=== PATIENT | male | born 1930 | race Caucasian/White ===

== ENCOUNTER 2017-02-16 23:11 | Inpatient (IN) | payer OTHER ==
[~2017-02-16] VITALS: Ht 177.8 cm; Wt 75.2 kg
[~2017-02-16 23:11] MED LIST: AMMONIUM LACTA140 GM TP; ESCITALOPRAM OX10 MG PO; HALOPERIDOL0.5 MG PO; LEXAPRO10 MG PO; SILVER SULFADIA50 GM TP; TAMSULOSIN HCL0.4 MG PO; VITAMIN D32000 UNI1 PO; XARELTO10 MG PO; XARELTO20 MG PO
[2017-02-16 23:52] LABS: MCHC 33.2 G/DL (30.0-36.0); MCV 96.4 FL (86-99); MEAN PLAT.VOLUME 10.3 uM^3 (9.0-12.4); PLATELET COUNT 157 K/uL (156-360); RBC DIS.WIDTH-SD 46.5 % (39-53); RED BLOOD COUNT 3.84 M/uL (4.00-5.50); WHITE BLOOD COUNT 11.8 K/uL (4.1-10.2)
[2017-02-16 23:59] LABS: CHLORIDE 106 mEq/L (99-109); POTASSIUM 4.3 mEq/L (3.7-5.4); SODIUM 139 mEq/L (136-147)
[2017-02-17 00:01] LABS: GLUCOSE 107 mg/dL (70-99)
[2017-02-17 00:02] LABS: ANION GAP 9 MEQ/L (2-14)
[2017-02-17 00:03] LABS: TOTAL BILIRUBIN 0.8 mg/dL (0.0-1.0)
[2017-02-17 00:04] LABS: ALKALINE PHOSPHATASE 71 IU/L (3-129)
[2017-02-17 00:05] LABS: GFR ESTIMATE (CALCULATED) 47 mL/min/
[2017-02-17 00:06] LABS: UREA NITROGEN (BUN) 26 mg/dL (9-23)
[2017-02-17 00:08] LABS: LIPASE 27 U/L (1.0-51.0)
[2017-02-17 00:14] LABS: TROP-I INTERPRETATION NEGATIVE; TROPONIN-I < 0.01 ng/mL (0.0-0.30)
[2017-02-17] MEDS ORDERED: LEXAPRO5 MG PO (00:54)
[2017-02-17] MEDS ORDERED: DEPAKOTE125 MG PO (00:54)
[2017-02-17] MEDS ORDERED: TYLENOL EXTRA500 MG PO (00:54)
[2017-02-17] MEDS ORDERED: VITAMIN B-12500 MC5 PO (00:55)
[2017-02-17] MEDS ORDERED: MELATONIN3 MG PO (00:55)
[2017-02-17] MEDS ORDERED: HALDOL0.5 MG PO (00:55)
[2017-02-17 01:17] LABS: ADD MIUA? YES; COLOR BROWN ((YELLOW)); LEUKOCYTES MODERATE; SPECIFIC GRAVITY 1.025 (1.000-1.030)
[2017-02-17 01:18] LABS: BILIRUBIN NEGATIVE; BLOOD LARGE; GLUCOSE (STRIP) NEGATIVE; KETONES NEGATIVE; NITRITE POSITIVE; PH, URINE 6.5 (5-8); PROTEIN (STRIP) 100; UROBILINOGEN 0.2 MG/DL (0.2-1.0)
[2017-02-17 01:19] LABS: RED BLOOD CELLS TNTC /HPF (0-5); UCUL ADDED? YES; WHITE BLOOD CELLS TNTC /HPF (0-5)
[2017-02-17 05:15] VITALS: BP 118/64
[2017-02-17 08:50] VITALS: BP 136/67
[2017-02-17 08:58] LABS: HEMATOCRIT 35.7 % (38.0-50.0); MCH 32.8 PG (29.0-34.0); MCHC 33.1 G/DL (30.0-36.0); MCV 99.2 FL (86-99); MEAN PLAT.VOLUME 10.3 uM^3 (9.0-12.4); PLATELET COUNT 134 K/uL (156-360); RBC DIS.WIDTH-CV 13.1 % (11.8-14.6); RBC DIS.WIDTH-SD 47.5 % (39-53); WHITE BLOOD COUNT 9.7 K/uL (4.1-10.2)
[2017-02-17 09:21] LABS: ANION GAP 4 MEQ/L (2-14); CHLORIDE 109 MEQ/L (99-109); GFR ESTIMATE (CALCULATED) 56 mL/min/; GLUCOSE 106 mg/dL (70-99); POTASSIUM 3.9 MEQ/L (3.7-5.4); SAMPLE HEMOLYSIS CHECK 0; SAMPLE ICTERIC CHECK 0; SAMPLE LIPEMIA CHECK 0; SODIUM 139 MEQ/L (136-147); UREA NITROGEN (BUN) 21 mg/dL (9-23)
[2017-02-17 16:09] VITALS: BP 155/63
[2017-02-17 22:57] VITALS: BP 115/58
[2017-02-18 06:35] LABS: EOSINOPHIL (%) 2.3 % (0-5); EOSINOPHIL COUNT 0.2 K/uL (0-0.3); HEMATOCRIT 34.9 % (38.0-50.0); IMMATURE GRANULOCYTE (%) 1.7 % (0.0-0.7); IMMATURE GRANULOCYTE COUNT 0.1 K/uL; INSTRUMENT ABS NEUTROPHIL CT 5.3 K/uL; MCH 31.4 PG (29.0-34.0); MCHC 31.8 G/DL (30.0-36.0); MCV 98.6 FL (86-99); MEAN PLAT.VOLUME 10.9 uM^3 (9.0-12.4); MONOCYTE (%) 11.5 % (3-12); MONOCYTE COUNT 0.9 K/uL (0-0.8); NEUTROPHIL (%) 70.3 % (45-76); NEUTROPHIL COUNT 5.3 K/uL (1.8-6.4); PLATELET COUNT 111 K/uL (156-360); RBC DIS.WIDTH-CV 12.8 % (11.8-14.6); RBC DIS.WIDTH-SD 46.8 % (39-53); RED BLOOD COUNT 3.54 M/uL (4.00-5.50); WHITE BLOOD COUNT 7.5 K/uL (4.1-10.2)
[2017-02-18 07:20] LABS: ANION GAP 9 MEQ/L (2-14); CHLORIDE 109 MEQ/L (99-109); GFR ESTIMATE (CALCULATED) 56 mL/min/; GLUCOSE 70 mg/dL (70-99); POTASSIUM 3.9 MEQ/L (3.7-5.4); SAMPLE HEMOLYSIS CHECK 0; SAMPLE ICTERIC CHECK 0; SAMPLE LIPEMIA CHECK 0; SODIUM 140 MEQ/L (136-147); UREA NITROGEN (BUN) 20 mg/dL (9-23)
[2017-02-18 08:04] VITALS: BP 111/59
[2017-02-18 15:30] VITALS: BP 124/63
[2017-02-18 22:50] VITALS: BP 142/70
[2017-02-19 06:04] LABS: HEMATOCRIT 32.7 % (38.0-50.0); MCH 32.4 PG (29.0-34.0); MCHC 33.6 G/DL (30.0-36.0); MCV 96.2 FL (86-99); PLATELET COUNT 121 K/uL (156-360); RBC DIS.WIDTH-CV 12.8 % (11.8-14.6); WHITE BLOOD COUNT 6.2 K/uL (4.1-10.2)
[2017-02-19 06:18] LABS: ANION GAP 6 MEQ/L (2-14); CHLORIDE 113 MEQ/L (99-109); GFR ESTIMATE (CALCULATED) > 59 mL/min/; GLUCOSE 81 mg/dL (70-99); POTASSIUM 3.8 MEQ/L (3.7-5.4); SAMPLE HEMOLYSIS CHECK 0; SAMPLE ICTERIC CHECK 0; SAMPLE LIPEMIA CHECK 0; SODIUM 144 MEQ/L (136-147); UREA NITROGEN (BUN) 18 mg/dL (9-23)
[2017-02-19 07:29] VITALS: BP 128/63
[2017-02-19 16:21] VITALS: BP 134/68
[2017-02-20 00:07] VITALS: BP 134/59
[2017-02-20 06:47] LABS: HEMATOCRIT 32.9 % (38.0-50.0); MCH 32.4 PG (29.0-34.0); MCHC 33.4 G/DL (30.0-36.0); MCV 97.1 FL (86-99); MEAN PLAT.VOLUME 11.2 uM^3 (9.0-12.4); PLATELET COUNT 136 K/uL (156-360); RBC DIS.WIDTH-CV 12.6 % (11.8-14.6); RBC DIS.WIDTH-SD 44.7 % (39-53); RED BLOOD COUNT 3.39 M/uL (4.00-5.50); WHITE BLOOD COUNT 6.1 K/uL (4.1-10.2)
[2017-02-20 07:10] LABS: ANION GAP 7 MEQ/L (2-14); CHLORIDE 111 MEQ/L (99-109); GFR ESTIMATE (CALCULATED) 56 mL/min/; GLUCOSE 75 mg/dL (70-99); POTASSIUM 3.8 MEQ/L (3.7-5.4); SAMPLE HEMOLYSIS CHECK 0; SAMPLE ICTERIC CHECK 0; SAMPLE LIPEMIA CHECK 0; SODIUM 143 MEQ/L (136-147); UREA NITROGEN (BUN) 15 mg/dL (9-23)
[2017-02-20 07:50] VITALS: BP 90/68
[2017-02-20 11:45] VITALS: BP 98/62
[2017-02-20 16:22] VITALS: BP 120/6
[2017-02-20 23:07] VITALS: BP 135/67
[2017-02-21 07:44] VITALS: BP 132/70
[2017-02-21 15:48] VITALS: BP 154/71
[2017-02-21 23:36] VITALS: BP 141/70
[2017-02-22 07:24] VITALS: BP 126/56
[2017-02-22 15:21] VITALS: BP 143/75
[2017-02-23 01:04] VITALS: BP 131/65
[2017-02-23 06:58] LABS: MCH 31.4 PG (29.0-34.0); MCHC 32.2 G/DL (30.0-36.0); MCV 97.3 FL (86-99); MEAN PLAT.VOLUME 11.7 uM^3 (9.0-12.4); PLATELET COUNT 132 K/uL (156-360); RBC DIS.WIDTH-CV 12.7 % (11.8-14.6); RBC DIS.WIDTH-SD 45.6 % (39-53); WHITE BLOOD COUNT 6.1 K/uL (4.1-10.2)
[2017-02-23 07:27] LABS: ANION GAP 10 MEQ/L (2-14); CHLORIDE 111 MEQ/L (99-109); GFR ESTIMATE (CALCULATED) 51 mL/min/; GLUCOSE 69 mg/dL (70-99); POTASSIUM 3.7 MEQ/L (3.7-5.4); SAMPLE HEMOLYSIS CHECK 0; SAMPLE ICTERIC CHECK 0; SAMPLE LIPEMIA CHECK 0; SODIUM 143 MEQ/L (136-147); UREA NITROGEN (BUN) 8 mg/dL (9-23)
[2017-02-23 07:55] VITALS: BP 128/68
[2017-02-23] MEDS ORDERED: CIPRO500 MG PO (09:33)
[2017-02-23] MEDS ORDERED: HEPARIN SO5000 UNIT4 SC (09:33)
[2017-02-23] MEDS ORDERED: TAMSULOSIN HCL0.4 MG PO (09:33)
[2017-02-23] MEDS ORDERED: VANCOMYCIN HCL1 GM IV (09:33)
== END 2017-02-23 13:38 | DRG 689 ==
LOC: EME → EDBD 23:11 → EME 23:11 → 5EAST 02-17 02:25 → EDOF 02-17 02:25 → ENRESERV 02-17 02:26 → EDOF 02-17 03:34 → 5EAST 02-17 03:34 → ENRESERV 02-17 03:49 → 5EAST 02-17 04:43 → ENPENDDIS 02-23 13:00 → 5EAST 02-23 13:38
PROVIDERS: Emergency Medicine; Hospitalist; Internal Medicine
DX: N39.0 Urinary tract infection, site not specified (principal); G93.41 Metabolic encephalopathy; R78.81 Bacteremia; I82.511 Chronic embolism and thrombosis of right femoral vein; B95.62 Methicillin resistant Staphylococcus aureus infection as the cause of diseases classified elsewhere; B96.5 Pseudomonas (aeruginosa) (mallei) (pseudomallei) as the cause of diseases classified elsewhere; G30.1 Alzheimer's disease with late onset; F02.80 Dementia in other diseases classified elsewhere, unspecified severity, without behavioral disturbance, psychotic disturbance, mood disturbance, and anxiety; N18.9 Chronic kidney disease, unspecified; G40.909 Epilepsy, unspecified, not intractable, without status epilepticus; I08.0 Rheumatic disorders of both mitral and aortic valves; F32.9 Major depressive disorder, single episode, unspecified; N40.0 Benign prostatic hyperplasia without lower urinary tract symptoms; Z86.711 Personal history of pulmonary embolism; Z66 Do not resuscitate
CPT/HCPCS: 71010; 74176; 76937; 80048; 80053; 80202; 81003; 82565; 83605; 83630; 83690; 83880; 84484; 85025; 85027; 87040; 87077; 87086; 87147; 87186; 87493; 87801; 93005; 93306; 93970; 94799; 97530 GO; 99281; 99285; C1894; J0692; J0696; J1644; J2543; J3370; J7030; J7050

== ENCOUNTER 2017-03-03 01:39 | Emergency (ER) | payer OTHER ==
[~2017-03-03] VITALS: Ht 177.8 cm; Wt 72.0 kg
[~2017-03-03 01:39] MED LIST changes: +CIPRO500 MG PO; +DEPAKOTE125 MG PO; +HALDOL0.5 MG PO; +HEPARIN SO5000 UNIT4 SC; +LEXAPRO5 MG PO; +MELATONIN3 MG PO; +TYLENOL EXTRA500 MG PO; +VANCOMYCIN HCL1 GM IV; +VITAMIN B-12500 MC5 PO
[2017-03-03 02:21] LABS: EOSINOPHIL COUNT 0.2 K/uL (0-0.3); HEMATOCRIT 33.7 % (38.0-50.0); IMMATURE GRANULOCYTE (%) 0.4 % (0.0-0.7); INSTRUMENT ABS NEUTROPHIL CT 7.9 K/uL; LYMPHOCYTE COUNT 1.4 K/uL (1.0-2.8); MCH 31.5 PG (29.0-34.0); MCHC 32.6 G/DL (30.0-36.0); MCV 96.6 FL (86-99); MEAN PLAT.VOLUME 10.3 uM^3 (9.0-12.4); MONOCYTE (%) 10.1 % (3-12); MONOCYTE COUNT 1.1 K/uL (0-0.8); NEUTROPHIL (%) 74.3 % (45-76); NEUTROPHIL COUNT 7.9 K/uL (1.8-6.4); PLATELET COUNT 206 K/uL (156-360); RBC DIS.WIDTH-CV 13.1 % (11.8-14.6); RBC DIS.WIDTH-SD 46.3 % (39-53); RED BLOOD COUNT 3.49 M/uL (4.00-5.50); WHITE BLOOD COUNT 10.6 K/uL (4.1-10.2)
[2017-03-03 02:28] LABS: CHLORIDE 106 mEq/L (99-109); SODIUM 142 mEq/L (136-147)
[2017-03-03 02:30] LABS: PROTHROMBIN TIME 11.3 SEC (10.2-12.9)
[2017-03-03 02:30] LABS: GLUCOSE 96 mg/dL (70-99)
[2017-03-03 02:31] LABS: ANION GAP 12 MEQ/L (2-14)
[2017-03-03 02:32] LABS: TOTAL BILIRUBIN 0.4 mg/dL (0.0-1.0)
[2017-03-03 02:33] LABS: PTT 30.7 SEC (25-37)
[2017-03-03 02:34] LABS: ALKALINE PHOSPHATASE 66 IU/L (3-129); GFR ESTIMATE (CALCULATED) 41 mL/min/
[2017-03-03 02:35] LABS: UREA NITROGEN (BUN) 22 mg/dL (9-23)
[2017-03-03 07:03] VITALS: BP 125/68
== END 2017-03-03 07:08 ==
LOC: EME 01:39
PROVIDERS: Emergency Medicine
DX: R31.0 Gross hematuria (principal); S09.90XA Unspecified injury of head, initial encounter; W19.XXXA Unspecified fall, initial encounter; Y92.129 Unspecified place in nursing home as the place of occurrence of the external cause; F03.90 Unspecified dementia, unspecified severity, without behavioral disturbance, psychotic disturbance, mood disturbance, and anxiety; Z86.718 Personal history of other venous thrombosis and embolism; Z79.01 Long term (current) use of anticoagulants
CPT/HCPCS: 70450; 80053; 81003; 85025; 85610; 85730; 99281; 99285; J7030